=== PATIENT | female | born 1995 | race African-American/Black ===

== ENCOUNTER 2016-08-26 11:26 | Emergency (ER) ==
[2016-08-26 12:12] LABS: MANUAL DIFF NEEDED? NO
[2016-08-26 12:16] LABS: BASO% 0.5 % (0.0-0.8); EOS# 0.01 X1000 (0.0-0.7); EOS% 0.2 % (0.0-10.0); HEMATOCRIT 43.2 % (37.0-47.0); HEMOGLOBIN 14.4 g/dL (12.0-16.0); IMM GRAN# 0.02 X1000 (0.0-0.04); IMM GRAN% 0.3 % (0.0-0.5); LYMPH# 1.77 X1000 (1.2-3.4); LYMPH% 27.5 % (20.5-51.1); MCH 29.6 PG (27-31); MCHC 33.3 g/dL (33-37); MCV 88.7 FL (81-99); MONO# 0.26 X1000 (0.11-0.59); MPV 9.6 FL (7.4-10.4); NEUT% 67.5 % (42.2-75.2); PLT 306 X1000 (130-400); RBC 4.87 XMIL (4.2-5.4)
[2016-08-26 12:18] LABS: URINE CULTURE NEEDED? NO; URINE MICRO REVIEW NEEDED? NO; URINE SOURCE CLEAN CATCH
[2016-08-26 12:24] LABS: BILIRUBIN URINE NEGATIVE (NEGATIVE); BLOOD URINE SMALL (NEGATIVE); COLOR YELLOW; GLUCOSE URINE NEGATIVE (NEGATIVE); LEUKOCYTES URINE NEGATIVE (NEGATIVE); NITRITE URINE NEGATIVE (NEGATIVE); PROTEIN URINE NEGATIVE (NEGATIVE); SP GRAVITY URINE 1.022; TURBIDITY URINE CLEAR (CLEAR); UROBILINOGEN URINE NORMAL (NORMAL)
[2016-08-26 12:25] LABS: UR EPITHELIAL CELLS <10 /HPF (<10); URINE BACTERIA 1+ /HPF; URINE RBC <10 /HPF (<10); URINE WBC <10 /HPF (<10)
[2016-08-26 12:35] LABS: AGAP 11; ALBUMIN 3.9 g/dL (3.5-5.0); ALKALINE PHOSPHATASE 51 U/L (32-104); AMYLASE 45 U/L (20-200); BUN 9 mg/dL (8-22); CHLORIDE 101 mmol/L (98-107); COSMO 271; GOT 18 U/L (10-30); GPT 24 U/L (10-36); LIPASE 17 U/L (13-60); POTASSIUM 4.2 mmol/L (3.5-5.1); SODIUM 136 mmol/L (136-145); TCO2 24 mmol/L (25-35); TOTAL PROTEIN 7.5 g/dL (6.3-8.3)
--- NOTE | 2016-08-26 14:37 | PROVIDER DOCUMENTATION ---
HPI-Abdominal Pain/GI Problem - General Chief Complaint: Diarrhea Stated Complaint: ABD PAIN,DIARRHEA Time Seen by Provider: 08/26/16 13:41 Source: patient Allergies/Adverse Reactions: Patient Allergies Allergy/AdvReac Type Severity Reaction Status Date / Time No Known Allergies Allergy Verified 07/08/16 16:57 Home Medications: Home Medication List Medication Instructions Recorded Confirmed Last Taken Type Diphenhydramine [Benadryl] 50 mg PO HS PRN PRN 09/30/15 07/08/16 07/07/16 23:00 History Methocarbamol 500 mg PO BID #20 tablet 07/08/16 Unknown Rx Naproxen 500 mg PO BID #20 tablet 07/08/16 Unknown Rx Ondansetron Odt [Zofran 4 mg Odt] 4 mg PO Q6H PRN PRN #15 tablet 07/08/16 Unknown Rx Dicyclomine [Bentyl] 20 mg PO 4XDAY PRN PRN #20 capsule 08/26/16 Unknown Rx Ondansetron [Zofran] 4 mg PO Q6H PRN PRN #20 tablet 08/26/16 Unknown Rx - History of Present Illness-ABD Nature of Presenting Problems: 21 y/o F with no known medical problems presents with complaint of diarrhea that began this morning. She reports 20 episodes of loose stools this morning. She reports some cramping central abdominal pain intermittently. She denies any N/V, hematochezia, mucous in stool, or recent antibiotic use. Abdominal Pain Onset Location: reports: periumbilical Pain Radiation: reports: no radiation Quality of Pain: reports: cramping Severity in ED: reports: mild Onset/Duration: reports: this morning Timing: reports: gone now Exposure to sick contacts?: No Review of Systems - Adult - REVIEW OF SYSTEMS - ADULT Constitutional: reports: no symptoms reported. denies: chills, fever Eyes: reports: no symptoms reported. denies: decreased vision, blurred vision Ears, Nose, Mouth & Throat: reports: no symptoms reported. denies: ear pain, hearing loss Cardiovascular: reports: no symptoms reported. denies: chest pain Respiratory: reports: no symptoms reported. denies: cough, shortness of breath Gastrointestinal: reports: see HPI Genitourinary: reports: no symptoms reported. denies: dysuria, hematuria Musculoskeletal: reports: no symptoms reported. denies: back pain Integumentary: reports: no symptoms reported. denies: itching, rash Neurological: reports: no symptoms reported. denies: dizziness/vertigo, headache/migraines Psychiatric: reports: no symptoms reported Endocrine: reports: no symptoms reported Hematologic/Lymphatic: reports: no symptoms reported Allergic/Immunologic: reports: no symptoms reported All Other Systems: Reviewed and Negative Past History - Adult - PAST MEDICAL HISTORY-ADULT Review of Records: reports: Nursing Assessment Review, Medications Reviewed Major Childhood Illnesses: reports: denies history Cardiovascular: reports: denies history Respiratory: reports: denies history Gastrointestinal: reports: GERD Neurological: reports: headaches/migraines - PRIOR SURGERIES/PROCEDURES Surgical/Procedure History: reports: none - IMMUNIZATION STATUS Childhood Immunizations: See Nurse Assessment Flu Vaccine: See Nurse Assessment - FAMILY HISTORY Family History: diabetes, HTN Physical Exam-General - PHYSICAL EXAM-ADULT Initial Vital Signs Reviewed: Yes - CONSTITUTIONAL General Appearance: appears well, alert, no apparent distress - EYES Eyes: PERRL/EOMI, pink conjunctivae - HEAD, EARS, NOSE, MOUTH & THROAT HENMT: normocephalic/atraumatic, moist mucous membranes - NECK Neck: supple, normal inspection - RESPIRATORY Respiratory: lungs clear, normal breath sounds, no pleuratic chest pain, no respiratory distress, no accessory muscle use - CARDIOVASCULAR Cardiovascular: normal peripheral pulses, regular rate, rhythm - GASTROINTESTINAL (ABDOMEN) Abdominal Exam: normal bowel sounds, non tender, soft. negative: distended, guarding, rigid, rebound - MUSCULOSKELETAL Back Exam: no CVA tenderness Extremity: normal gait, normal inspection - SKIN Integumentary: normal color, normal turgor, warm/dry - NEUROLOGIC Neurologic: grossly normal, no motor/sensory deficits - PSYCHIATRIC Psych/Mental Status: normal mood/affect, normal thought content, normal thought process, oriented x 3 Progress - PLAN OF CARE/RESULTS Progress/Plan/Lab Results: Laboratory Tests 08/26/16 08/26/16 08/26/16 11:58 11:58 12:05 WBC 6.43 RBC 4.87 Hgb 14.4 Hct 43.2 MCV 88.7 MCH 29.6 MCHC 33.3 RDW Std Deviation 13.9 Plt Count 306 MPV 9.6 Immature Gran % (Auto) 0.3 Neut % (Auto) 67.5 Lymph % (Auto) 27.5 [place] % (Auto) 4.0 Eos % (Auto) 0.2 Baso % (Auto) 0.5 Immature Gran # (Auto) 0.02 Neut # (Auto) 4.34 Lymph # (Auto) 1.77 [place] # (Auto) 0.26 Eos # (Auto) 0.01 Baso # (Auto) 0.03 Sodium 136 Potassium 4.2 Chloride 101 Carbon Dioxide 24 L Anion Gap 11 BUN 9 Creatinine 0.6 Estimated GFR/1.73 m2 > 60 BUN/Creatinine Ratio 15 Glucose 113 H Calculated Osmolality 271 Calcium 9.0 Total Bilirubin 0.30 AST 18 ALT 24 Alkaline Phosphatase 51 Total Protein 7.5 Albumin 3.9 Globulin 3.6 Albumin/Globulin Ratio 1.1 Amylase 45 Lipase 17 Urine Source CLEAN CATCH Urine Color YELLOW Urine Turbidity CLEAR Urine pH 6.0 Ur Specific [place] 1.022 Urine Protein NEGATIVE Ur Glucose (Stick) NEGATIVE Ur Ketones (Stick) NEGATIVE Urine Blood SMALL A Urine Nitrite NEGATIVE Urine Bilirubin NEGATIVE Urobilinogen Dipstick NORMAL Urine Leukocytes NEGATIVE Urine WBC (Auto) <10 Urine RBC (Auto) <10 U Epithel Cells (Auto) <10 Urine Bacteria (Auto) 1+ Urine Test 08/26/16 12:05 WBC RBC Hgb Hct MCV MCH MCHC RDW Std Deviation Plt Count MPV Immature Gran % (Auto) Neut % (Auto) Lymph % (Auto) [place] % (Auto) Eos % (Auto) Baso % (Auto) Immature Gran # (Auto) Neut # (Auto) Lymph # (Auto) [place] # (Auto) Eos # (Auto) Baso # (Auto) Sodium Potassium Chloride Carbon Dioxide Anion Gap BUN Creatinine Estimated GFR/1.73 m2 BUN/Creatinine Ratio Glucose Calculated Osmolality Calcium Total Bilirubin AST ALT Alkaline Phosphatase Total Protein Albumin Globulin Albumin/Globulin Ratio Amylase Lipase Urine Source Urine Color Urine Turbidity Urine pH Ur Specific [place] Urine Protein Ur Glucose (Stick) Ur Ketones (Stick) Urine Blood Urine Nitrite Urine Bilirubin Urobilinogen Dipstick Urine Leukocytes Urine WBC (Auto) Urine RBC (Auto) U Epithel Cells (Auto) Urine Bacteria (Auto) Urine Test NEGATIVE Orders Category Date Time Status Saline Loc DIRECTED Care 08/26/16 11:57 Active NPO Diet 08/26/16 11:57 Active AMYLASE [CHEM] Stat Lab 08/26/16 11:58 Completed CBC WITH ELECTRONIC DIFF [HEME] Stat Lab 08/26/16 11:58 Completed COMPREHENSIVE METABOLIC PANEL [CHEM] Stat Lab 08/26/16 11:58 Completed LIPASE [CHEM] Stat Lab 08/26/16 11:58 Completed TEST-URINE [PREG] Stat Lab 08/26/16 12:05 Completed URINALYSIS W/POSS RFLX CULT [URINALYSIS] Stat Lab 08/26/16 12:05 Completed Vital Signs Temp Pulse Resp BP Pulse Ox 08/26/16 11:54 98.4 F 64 16 123/74 100 No Known Allergies Allergy (Verified 07/08/16 16:57) Diphenhydramine [Benadryl] 50 mg PO HS PRN PRN 09/30/15 Methocarbamol 500 mg PO BID #20 tablet 07/08/16 Naproxen 500 mg PO BID #20 tablet 07/08/16 Ondansetron Odt [Zofran 4 mg Odt] 4 mg PO Q6H PRN PRN #15 tablet 07/08/16 Dicyclomine [Bentyl] 20 mg PO 4XDAY PRN PRN #20 capsule 08/26/16 Ondansetron [Zofran] 4 mg PO Q6H PRN PRN #20 tablet 08/26/16 Dietary Diet NPO Start More Aug 26 1157 I&O 08/25/16 08/26/16 08/27/16 06:59 06:59 06:59 Output Total 50 Balance -50 Laboratory 08/26/16 08/26/16 08/26/16 12:05 12:05 11:58 WBC 6.43 RBC 4.87 Hgb 14.4 Hct 43.2 MCV 88.7 MCH 29.6 MCHC 33.3 RDW Std Deviation 13.9 Plt Count 306 MPV 9.6 Immature Gran % (Auto) 0.3 Neut % (Auto) 67.5 Lymph % (Auto) 27.5 [place] % (Auto) 4.0 Eos % (Auto) 0.2 Baso % (Auto) 0.5 Immature Gran # (Auto) 0.02 Neut # (Auto) 4.34 Lymph # (Auto) 1.77 [place] # (Auto) 0.26 Eos # (Auto) 0.01 Baso # (Auto) 0.03 Sodium Potassium Chloride Carbon Dioxide Anion Gap BUN Creatinine Estimated GFR/1.73 m2 BUN/Creatinine Ratio Glucose Calculated Osmolality Calcium Total Bilirubin AST ALT Alkaline Phosphatase Total Protein Albumin Globulin Albumin/Globulin Ratio Amylase Lipase Urine Source CLEAN CATCH Urine Color YELLOW Urine Turbidity CLEAR Urine pH 6.0 Ur Specific [place] 1.022 Urine Protein NEGATIVE Ur Glucose (Stick) NEGATIVE Ur Ketones (Stick) NEGATIVE Urine Blood SMALL A Urine Nitrite NEGATIVE Urine Bilirubin NEGATIVE Urobilinogen Dipstick NORMAL Urine Leukocytes NEGATIVE Urine WBC (Auto) <10 Urine RBC (Auto) <10 U Epithel Cells (Auto) <10 Urine Bacteria (Auto) 1+ Urine Test NEGATIVE 08/26/16 11:58 WBC RBC Hgb Hct MCV MCH MCHC RDW Std Deviation Plt Count MPV Immature Gran % (Auto) Neut % (Auto) Lymph % (Auto) [place] % (Auto) Eos % (Auto) Baso % (Auto) Immature Gran # (Auto) Neut # (Auto) Lymph # (Auto) [place] # (Auto) Eos # (Auto) Baso # (Auto) Sodium 136 Potassium 4.2 Chloride 101 Carbon Dioxide 24 L Anion Gap 11 BUN 9 Creatinine 0.6 Estimated GFR/1.73 m2 > 60 BUN/Creatinine Ratio 15 Glucose 113 H Calculated Osmolality 271 Calcium 9.0 Total Bilirubin 0.30 AST 18 ALT 24 Alkaline Phosphatase 51 Total Protein 7.5 Albumin 3.9 Globulin 3.6 Albumin/Globulin Ratio 1.1 Amylase 45 Lipase 17 Urine Source Urine Color Urine Turbidity Urine pH Ur Specific [place] Urine Protein Ur Glucose (Stick) Ur Ketones (Stick) Urine Blood Urine Nitrite Urine Bilirubin Urobilinogen Dipstick Urine Leukocytes Urine WBC (Auto) Urine RBC (Auto) U Epithel Cells (Auto) Urine Bacteria (Auto) Urine Test Lab workup unremarkable. Patient has had no further episodes of pain or diarrhea since arrival to ER. Will discharge home with symptomatic treatment to follow up with PCP. Encouraged plenty of fluids. Departure - Departure Time of Disposition Order: 14:36 DIAGNOSIS: Diarrhea Qualifiers: Diarrhea type: unspecified type Qualified Code(s): R19.7 - Diarrhea, unspecified Disposition: HOME 01 Certified Medical Emergency: Emergent Condition: Good Additional Instructions: Drink plenty of fluids. Return to ER for any new or worsening symptoms. ED Follow Up Instructions: You have been treated by a care provider in the Emergency Department. These instructions are being provided to you so you can have an understanding of how to care for yourself upon discharge. Upon discharge from the Emergency Department, you are responsible for making arrangements for follow-up care by a physician of your choice. Take all prescribed medications as directed. Return to the Emergency Department immediately for any new or worsening symptoms. You may call the Physician Referral phone number at [phone] to obtain a list of Physicians who are taking new patients. Prescriptions: Dicyclomine [Bentyl] 20 mg PO 4XDAY PRN PRN #20 capsule PRN Reason: Cramps Ondansetron [Zofran] 4 mg PO Q6H PRN PRN #20 tablet PRN Reason: Nausea Attestation - Physician/ MAC Attestation Patient care was provided by Advanced Practice Provider:: Yes Advanced Practice Provider:: Liyah Murphy Advanced Practice Provider documentation review:: The Mid-level provider documentation, treatment plan and medical decision making was reviewed by the physician who agrees with all treatment and medical decision making by the MLP.
[2016-08-26 15:20] VITALS: BP 130/80
== END 2016-08-26 15:20 | disposition home or self-care (01) ==
LOC: ED 11:26
DX: R19.7 Diarrhea, unspecified (principal); R10.33 Periumbilical pain; Z83.3 Family history of diabetes mellitus; Z82.49 Family history of ischemic heart disease and other diseases of the circulatory system
CPT/HCPCS: 36415; 80053; 81001; 81025; 82150; 83690; 85025; 99283